=== PATIENT | male | born 1980 | race Caucasian/White ===

== ENCOUNTER 2021-08-10 07:37 | Emergency (ER) | payer MEDICAID ==
[~2021-08-10] VITALS: Ht 167.6 cm; Wt 100.0 kg
[2021-08-10 07:48] VITALS: BP 153/82
== END 2021-08-10 08:35 | disposition home or self-care (01) ==
LOC: EMS 07:44
DX: R36.1 Hematospermia (principal); I10 Essential (primary) hypertension
CPT/HCPCS: 99281